=== PATIENT | male | born 1940 | race Caucasian/White ===

== ENCOUNTER 2022-01-19 10:35 | Emergency (ER) | payer MEDICARE, OTHER ==
[~2022-01-19 10:35] MED LIST: ASPIR 8181 MG PO; COMBIVENT0.074 GM/I INH; FLONASE 0.05% N16 GM; GLUCOPHAGE 500500 MG PO; IBUPROFEN800 MG PO; LEVAQUIN500 MG PO; METFORMIN HCL1000 MG PO; NEURONTIN 300300 MG PO; NEXIUM40 MG PO; PRAVACHOL40 MG PO; PROTONIX40 MG PO; SEROQUEL50 MG PO; ZESTRIL/PRINIVI10 MG PO; ZYRTEC10 M3 PO
[2022-01-19] MEDS ORDERED: ACYCLOVIR800 MG PO (11:55)
[2022-01-19] MEDS ORDERED: LIDOCAINE PLUS120 GM TP (11:55)
== END 2022-01-19 12:23 | disposition home or self-care (01) ==
LOC: ER1 10:35
DX: B02.9 Zoster without complications (principal); E78.5 Hyperlipidemia, unspecified; E11.9 Type 2 diabetes mellitus without complications; I10 Essential (primary) hypertension
CPT/HCPCS: 99282